=== PATIENT | male | born 1950 | race Caucasian/White ===

== ENCOUNTER 2017-12-29 11:24 | Outpatient (CLI) | payer MEDICARE ==
[~2017-12-29] VITALS: Ht 190.5 cm; Wt 88.2 kg
--- NOTE | ~2017-12-29 | HEMODYNAMI ---
PATIENT:BEENA MENDEZ MEDICAL RECORD: [id number] : 54 LOCATION:[facility] ADMISSION DATE: 12/29/17 Generatedon:12/29/201714:51 Patient name: BEENA MENDEZ Patient #: [id number] SSN: : 1950 Date of study: 12/29/2017 Page: Of Hemodynamic Procedure Report Patient Data Patient Demographics Procedure consent was obtained First Name: BEENA Gender: Male Last Name: ANDREA : 1950 [facility] Initial: LACIE Age: 67 year(s) Patient #: [id number] Race: Unknown Additional ID: [id number] Contact details Address: [facility] [address] State: [place] City: [place] Zip code: [address] Past Medical History Allergies: No known allergies Admission Admission Data Admission Date: 12/29/2017 Admission Time: 11:24 Height (in.): 75 BSA: 2.15 (m2) Height (cm.): 190.5 BMI: 23.87 (kg/m2) Weight (lbs.): 191 Weight (kg.): 86.64 Lab Results Lab Result Date: 12/29/2017 Lab Result Time: 0:00 Biochemistry Name Units Result Min Max BUN mg/dl 18 --(---*)-- 7 18 Creatinine mg/dl 0.8 --(-*--)-- 0.6 1.3 CBC Name Units Result Min Max Hemoglobin g/dl 14.2 --(*---)-- 13.5 17.5 Procedure Procedure Types Cath Procedure Diagnostic Procedure LHC LHC w/Coronaries Procedure Description Procedure Date Procedure Date: 12/29/2017 Procedure Start Time: 14:38 Procedure End Time: 14:50 Procedure Staff Name Function Dev Owens MD Performing Physician Sofie Okeefe RT Scrub Ana Jensen RN Nurse Desi Newman RN Nurse Andres Ayers RT Monitor Procedure Data Cath Procedure Fluoroscopy Diagnostic fluoroscopy Total fluoroscopy Time: 1 time: 1 min min Diagnostic fluoroscopy Total fluoroscopy dose: 339 dose: 339 mGy mGy Contrast Material Contrast Material Type Amount (ml) Isovue 300 36 Entry Location Entry Primary Successful Side Size Upsize Upsize Entry Closure Yan ccessful Closure Location (Fr) 1 (Fr) 2 (Fr) Remarks Device Remarks Radial Right 6 Fr Mechanical artery Short Compression Estimated blood loss: 10 ml Diagnostic catheters Device Type Used For End Catheter Placement DIAGNOSTIC Hillister 110cm 5 Procedure Fr catheter ([id number]) Procedure Complications No complications Procedure Medications Medication Administration Route Dosage 0.9% NaCl I.V. 100 ml/hr Oxygen etCO2 Nasal cannula 2 l/min Lidocaine 2% added to field 20 Heparin Flush Bag added to field 2 bags (1000units/500ml NS) Versed I.V. 1 mg Fentanyl I.V. 50 mcg Radial Cocktail I.A. 1 syringe (Verapomil 2mg/Nitro 400mcg/Heparin 1500units) Versed I.V. 1 mg Fentanyl I.V. 50 mcg Versed I.V. 1 mg Hemodynamics Rest BSA: 2.15 (m2) HGB: 14.2 (g/dl) O2 Consumption: Estimated: 241.3 (ml/min) O2 Con sumption indexed: Estimated:112.23 (ml/min/m) Heart Rate: 58 (bpm) Pressure Samples Time Site Value (mmHg) Purpose Heart Use Rate(bpm) 14:39 LV 124/-3,4 Snapshot 71 14:40 AO 113/21(58) Snapshot 64 14:40 AO 122/66(90) Snapshot 71 14:41 AO 106/57(77) Snapshot 63 Gradients Valve Time Site Site Mean SEP/DFP Peak To Heart Use 1 2 (mmHg) (sec/min) Peak Rate (mmHg) (bpm) Aortic 14:39 LV AO 74 Snapshots Pre Cath Intra NCS Post Cath Vital Signs Time Heart Resp SPO2 etCO2 NIBP (mmHg) Rhythm Pain Sedation Rate (ipm) (%) (mmHg) Status Level (bpm) 14:17:50 59 19 99 31.5 139/80(129) NSR 0 (11) 10(A) , No pain 14:22:35 63 18 98 35.3 147/80(128) NSR 0 (11) 10(A) , No pain 14:27:22 68 20 98 33 127/71(106) NSR 0 (11) 10(A) , No pain 14:32:04 62 19 100 37.5 131/74(110) NSR 0 (11) 10(A) , No pain 14:36:39 65 20 96 38 117/74(110) NSR 0 (11) 9(A) , No pain 14:41:19 70 18 96 33.8 116/63(96) NSR 0 (11) 9(A) , No pain 14:45:58 67 20 96 38 130/70(98) NSR 0 (11) 10(A) , No pain 14:50:43 60 11 99 33.8 116/67(101) NSR 0 (11) 10(A) , No pain Medications Time Medication Route Dose Verified Delivered Reason Notes Effectiveness by by 14:22:35 0.9% NaCl I.V. 100 Dev Desi used for ml/hr [facility] Bowen Newman procedure MD BELL 14:22:50 Oxygen etCO2 2 l/min Dev Desi used for Nasal [facility] Bowen Newman procedure cannula MD BELL 14:22:59 Lidocaine 2% added 20ml Dev Desi used for to vial GracielaBowen Newman procedure field MD BELL 14:23:18 Heparin Flush added 2 bags Dev Desi used for Bag to [facility] Bowen Newman procedure (1000units/500ml field MCGOVERN RN NS) 14:32:21 Versed I.V. 1 mg Dev Desi for sedation St Bowen Newman MD, RN 14:32:27 Fentanyl I.V. 50 mcg Dev Desi for sedation St Bowen Newman MD, RN 14:38:33 Radial Cocktail I.A. 1 Dev Méndez for (Verapomil syringe Graciela Graciela vasodilation 2mg/Nitro MD MCGOVERN 400mcg/Heparin 1500units) 14:38:48 Versed I.V. 1 mg Dev Perez for sedation St Bwoen Jensen RN, MD 14:38:57 Fentanyl I.V. 50 mcg Dev Perez for sedation St Bowen Jensen RN, MD 14:41:24 Versed I.V. 1 mg Dev Perez for sedation St Bowen Jensen RN, MD Procedure Log Time Note 14:03:59 Ana Jensen RN sent for patient. Start room use. 14:04:00 Time tracking: Regular hours (M-F 7:00 - 5:00) 14:04:04 Plan of Care:Hemodynamics will remain stable., Cardiac rhythm will remain stable., Comfort level will be maintained., Respiratory function will remain adequate., Patient/ family verbilizes understanding of procedure., Procedure tolerated without complication., Recovers from procedure without complications.. 14:06:28 Patient Height : 75 inches 14:06:30 Patient Weight : 191 lbs 14:06:37 Patient allergic to No known allergies 14:08:02 Lab Result : BUN 18 mg/dl 14:08:02 Lab Result : Hemoglobin 14.2 g/dl 14:08:02 Lab Result : Creatinine 0.8 mg/dl 14:10:16 Patient received from Pre/Post Procedure Room to CCL 1 Alert and oriented. Tansferred to table in Supine position. 14:10:24 Warm blankets applied, and winsome hugger turned on for patient comfort. 14:10:24 Correct patient and procedure confirmed by team. 14:10:26 Signed procedure consent form obtained from patient. 14:10:27 ECG and BP/O2 sat monitors applied to patient. 14:10:35 H&P Date Dictated: 12/23/2017 Within 30 days and on chart., H&P Addendum completed by physician on day of procedure. (MUST COMPLETE FOR ALL OUTPATIENTS). 14:16:53 Vital chart was started 14:22:35 0.9% NaCl 100 ml/hr I.V. was administered by Desi Newman RN; used for procedure; 14:22:50 Oxygen 2 l/min etCO2 Nasal cannula was administered by Desi Newman RN; used for procedure; 14:22:59 Lidocaine 2% 20ml vial added to field was administered by Desi Newman RN; used for procedure; 14:23:18 Heparin Flush Bag (1000units/500ml NS) 2 bags added to field was administered by Desi Newman RN; used for procedure; 14:23:24 Pre-procedure instructions explained to patient. 14:23:25 Pre-op teaching completed and patient verbalized understanding. 14:23:27 Family in waiting room. 14:23:28 Patient NPO since Midnight. 14:23:30 Is patient on blood thinner?No 14:23:32 Patient diabetic? No. 14:23:40 Previous problem with sedation/anesthesia? No ? 14:23:42 Snore? No 14:23:43 Sleep apnea? No 14:23:44 Deviated septum? No 14:23:45 Opens mouth fully? No 14:23:45 Sticks out tongue? Yes 14:23:47 Airway obstruction? No ? 14:23:50 Dentures? No ? 14:23:53 Pre procedure: right dorsailis pedis pulse 2+ Normal; easily identifiable; not easily obliterated 14:23:55 Modified Deshawn's test Ulnar < 7 seconds 14:23:56 Patient pain scale 0/10 ?. 14:24:03 IV patent on arrival in right wrist with 0.9% NaCl at KVO. 14:24:11 IV left forearm D/C'd due to infiltration. 14:24:23 IV started by Ana Jensen RN inleft hand with a 22 gauge IV catheter with 0.9% NaCl at KVO. 14:24:36 IV CATHETER 22g opened to sterile field. 14:24:41 Lab results completed and on chart. 14:24:44 Right Radial & Right Groin area was prepped with chlora-prep and draped in sterile fashion 14:24:44 Alarms reviewed by R. N. 14:24:45 Sharps counted by scrub and verified by R.N. 14:24:47 Use device set Radial Dx or PCI 14:24:48 ACIST Syringe (74468) opened to sterile field. 14:24:49 Medline Cath Pack ([id number]) opened to sterile field. 14:24:49 Bag Decanter (2002S) opened to sterile field. 14:24:51 ACIST Hand Control (50302) opened to sterile field. 14:24:51 ACIST Manifold (24034) opened to sterile field. 14:24:51 Tegaderm 4 x 4 (1626W) opened to sterile field. 14:24:52 MBrace Wrist Support ([id number]) opened to sterile field. 14:24:54 SHEATH 6Fr Prelude Radial ([id number]) opened to sterile field. 14:24:55 DIAGNOSTIC WIRE .035 260cm J wire (238586) opened to sterile field. 14:24:59 Baseline sample Acquired. 14:25:02 Rhythm: sinus rhythm 14:25:03 Full Disclosure recording started 14:25:08 Physician arrived 14:30:08 --------ALL STOP TIME OUT------ 14:30:09 Final Timeout: patient, procedure, and site verified with staff and physician. All members of the team are in agreement. 14:30:10 Right Radial & Right Groin site verified by team. 14:30:14 Physical assessment completed. ASA score P 2 - A patient with mild systemic disease as per Dev Owens MD. 14:30:17 Sedation plan: IV Moderate Sedation Medication:Versed, Fentanyl 14:32:21 Versed 1 mg I.V. was administered by Desi Newman RN; for sedation; 14:32:27 Fentanyl 50 mcg I.V. was administered by Desi Newman RN; for sedation; 14:35:39 Zero performed for pressure channel P1 14:37:49 Procedure started. 14:38:02 Local anesthetic to right radial artery with Lidocaine 2% by Dev Owens MD.INITIAL ACCESS ONLY 14:38:33 Radial Cocktail (Verapomil 2mg/Nitro 400mcg/Heparin 1500units) 1 syringe I.A. was administered by Dev Owens MD; for vasodilation; 14:38:48 Versed 1 mg I.V. was administered by Ana Jensen RN; for sedation; 14:38:57 Fentanyl 50 mcg I.V. was administered by Ana Jensen RN; for sedation; 14:39:24 A 6 Fr Short sheath was inserted into the Right Radial artery 14:39:36 A DIAGNOSTIC Hillister 110cm 5 Fr catheter (192042) was advanced over the wire and used for Procedure. 14:39:38 LV angiography performed. 14:39:39 LV gram done using REYES 14:39:55 EF : 55 % 14:40:03 LV hemodynamics recorded. 14:40:05 Injector settings: Ml/sec: 7, Volume: 15, 14:40:36 LCA angiography performed. 14:41:24 Versed 1 mg I.V. was administered by Ana Jensen RN; for sedation; 14:41:45 RCA angiography performed. 14:44:33 Catheter removed. 14:44:35 TR BAND Standard ([id number]) opened to sterile field. 14:44:49 Sheath removed intact; hemostasis achieved with Mechanical Compression to the Right Radial artery. 14:45:11 Procedure ended.(Physican Out) 14:47:54 Fluoroscopy time 01.00 minutes. 14:48:00 Fluoroscopy dose: 339 mGy 14:48:00 Flurop Dose total: 339 14:48:05 Contrast amount:Isovue 300 36ml. 14:48:06 Sharps counted by scrub and verified by R.N. 14:48:08 TR band inflated with 10cc of air. 14:48:10 Insertion/operative site no bleeding no hematoma. 14:48:11 Post Procedure Pulses reassessed and unchanged 14:48:15 Post-procedure physical assessment completed. ASA score P 2 - A patient with mild systemic disease as per Dev Owens MD. 14:48:17 Post procedure rhythm: unchanged. 14:48:28 Estimated blood loss: 10 ml 14:48:30 Post procedure instruction explained to patient.Patient verbalizes understanding. 14:48:31 Patient needs reinforcement of post procedure teaching. 14:48:37 Procedure and supply charges have been captured, reviewed, submitted and are correct. 14:48:40 Procedure Complication : No complications 14:50:19 Vital chart was stopped 14:50:19 See physician's report for complete and final results. 14:50:24 Report given to Pre/Post Procedure Room. 14:50:29 Patient transfered to Pre/Post Procedure Room with Stretcher. 14:50:31 Procedure ended. 14:50:31 Full Disclosure recording stopped 14:50:45 End room use (Document Last) Device Usage Item Name Manufacture Quantity Catalog Number Hospital Part Current M inimal Lot# / Charge Number Stock Stock Serial# Code IV CATHETER 22g B. Armendariz 1 [id number] 820765 [id number] 5 ACIST Syringe Acist 1 71145 280471 904904 078397 2 0 (52449) [employer] Inc Medline Cath Cardinal 1 [id number] 834227 90178 466251 5 Pack Health ([id number]) Bag Decanter Microtek 1 2001S 936366 82837 167669 5 () Medical Inc. ACIST Hand Acist 1 60163 564745 545490 426755 5 Control (67786) Medical Systems Inc ACIST Manifold Acist 1 31301 102749 110326 672538 5 (20164) Medical Systems Inc Tegaderm 4 x 4 3M 1 1626W 730989 958186 627962 5 (1626W) MBrace Wrist Advanced 1 140-0250-00 622109 22015 902812 5 Support Vascular ([id number]) Dynamics SHEATH 6Fr Merit 1 [id number] 480515 865213 450119 5 Prelude Radial Medical ([id number]) DIAGNOSTIC WIRE St Kash 1 416809 387415 053050 316920 3 0 .035 260cm J wire (762376) DIAGNOSTIC Terumo 1 40-4001 858365 106239 895868 5 Hillister 110cm 5 Fr catheter (530732) TR BAND Terumo 1 [id number] 193317 056729 918051 4 0 Standard ([id number]) Signature Audit [place] Stage Time Signature Unsigned Intra-Procedure 12/29/2017 Andres Ayers 2:51:25 PM RT(R) Signatures Monitor : Andres Ayers RT Signature : Date : Time : [address] [address]
--- NOTE | ~2017-12-29 | OP ---
PATIENT NAME: BEENA MENDEZ MEDICAL RECORD: [id number] :54 LOCATION:D.CAT ADMISSION DATE: SURGEON: NAIMA MARISCAL MD DATE OF OPERATION: 12/29/2017 PROCEDURES: Left heart catheterization, selective coronary angiography, right radial approach. CATHETERS: Radial sheath, [place] catheter. The procedure was well tolerated. The patient returned to the hardwick. Sheath was removed. TR band was placed. FINDINGS: Left ventriculography in 30-degree REYES view shows mild anterior hypokinesis. Overall, LV function preserved at 50%. CORONARY ANATOMY: LEFT MAIN: Left main is free of disease. LAD: Has a long diffuse 80% stenosis, fair target distally. The first diagonal has a proximal stenosis of 80%, good target distally. CIRCUMFLEX: Totally occluded, fills via left to left collaterals, appears to be a good target from ghost filling. RIGHT CORONARY ARTERY: Dominant artery, multiple stenosis of 80% throughout its course with a good target to the PDA distally. IMPRESSION: Multivessel coronary artery disease. LV function remains normal with anterior hypokinesis. We will ask CV surgery for opinion concerning cardiac bypass grafting. TRANSINT:[id number] Voice Confirmation ID: [id number] DOCUMENT ID: [id number] NAIMA MARISCAL MD at 1305 CC: [id number] DICTATION DATE: 12/29/17 1453 RAILROAD COOK: 12/29/17 1531 DEP CLI 12/29/17 [id number] [place] [address]
[2017-12-29 12:03] VITALS: BP 168/84; Ht 190.5 cm; Wt 88.2 kg
[2017-12-29 12:36] LABS: CALC OSMOLALITY 276 mosm/kg (275-300); CALCIUM 8.8 mg/dL (8.5-10.1); CARBON DIOXIDE 22.3 mmol/L (21.0-32.0); CHLORIDE - SERUM 104 mmol/L (98-107); CREATININE - SERUM 0.8 mg/dL (0.6-1.3); GLUCOSE 88 mg/dL (74-106); SODIUM 138 mmol/L (136-145); UREA NITROGEN 18 mg/dL (7-18); eGFR NON AFRICAN AMERICAN > 90 mL/min (90-120)
[2017-12-29 12:38] LABS: POTASSIUM - SERUM 4.7 mmol/L (3.5-5.1)
[2017-12-29 12:40] LABS: BASOPHILS 0.9 % (0-2); EOSINOPHILS 7.5 % (0-7); HEMATOCRIT 41.6 % (42.0-54.0); HEMOGLOBIN 14.2 g/dL (13.5-17.5); IMMATURE GRANULOCYTES 0.2 % (0-5); LYMPHOCYTES 30.1 % (15-50); MCHC 34.1 g/dL (31.0-37.0); MCV 85.1 fL (80.0-100.0); MEAN PLATELET VOLUME 10.7 fL (7.4-10.4); MONOCYTES 11.5 % (2-11); NEUTROPHILS 49.8 % (40-80); PLATELET COUNT 224 10x3/uL (130-400); RBC 4.89 10x6/uL (4.20-6.10); RDW 12.6 % (11.5-14.5); WBC 8.2 10x3/uL (4.8-10.8)
[2018-01-04] MEDS ORDERED: POTASSIUM99 M1 PO (13:54)
[2018-01-04] MEDS ORDERED: LIPITOR10 MG PO (13:54)
[2018-01-04] MEDS ORDERED: ASPIRIN EC81 M1 PO (13:55)
== END 2017-12-29 17:05 | disposition home or self-care (01) ==
LOC: D.CATH 11:24
PROVIDERS: Internal Medicine Interventional Cardiology
DX: I25.110 Atherosclerotic heart disease of native coronary artery with unstable angina pectoris (principal)

== ENCOUNTER 2018-01-04 14:30 | Inpatient (IN) | payer MEDICARE ==
[~2018-01-04] VITALS: Ht 190.5 cm; Wt 85.1 kg
--- NOTE | ~2018-01-04 | EC ---
PATIENT:BEENA MENDEZ DATE OF SERVICE: 01/06/18 SEX: M MEDICAL RECORD: [id number] DATE OF : 54 LOCATION:[place] [address] AGE OF PATIENT: 67 ADMISSION DATE: 01/06/18 REFERRING PHYSICIAN: INTERPRETING PHYSICIAN: NAIMA MARISCAL MD ECHOCARDIOGRAM REPORT ECHO CHARGES Date: 01/06/18 CLINICAL DIAGNOSIS: ECHOCARDIOGRAPHIC MEASUREMENTS (adult normal given) AC root (d.<3.7cm) cm LV Septum d (<1.2 cm> cm Valve Excursion cm LV Septum (systole) cm Left Atria (s.<4.0cm> cm LVPW d(<1.2cm) cm RV (d.<2.3cm) cm LVPW (sytole) cm LV diastole(<5.6CM) cm MV E-F(>70mm/sec) cm LV systole cm LVOT Diameter cm MV exc.(>10mm) cm Est.ejection fraction (50-75%) % DOPPLER: LVIT cm/sec A cm/sec E cm/sec LA cm/sec RVSP mmHg LVOT cm/sec AOP1/2T m/s Asc. Ao cm/sec RVOT cm/sec RA cm/sec PA cm/sec AV Gradient Peak mmHg AV Mean mmHg AV Area cm MV Gradient Peak mmHg MV Mean mmHg MV Area cm COMMENTS: Marker Delivery: Ernst JEWELLOE Rag Cutting Machine Operator: 3 Dr. Guerrero TAPE# PACS Pericardial Effusion DATE OF SERVICE: 01/06/2018 LVH appears present. LV internal dimension normal. LV globally hypokinetic, reduced EF 40%. Aortic valve appears tricuspid with good excursion. Left atrium appears normal. Mitral valve appears normal. Trace MR. Right-sided chambers are grossly normal. Trace TR. TRANSINT:[id number] Voice Confirmation ID: [id number] DOCUMENT ID: [id number] ECHOCARDIOGRAM REPORT [id number] BEENA MENDEZ NAIMA MARISCAL MD at 1023 CC: [id number] DICTATION DATE: 01/06/18 1206 MANAGER PROCESS EXCELLENCE: 01/06/18 1247 ADM IN [address] [id number] [place] [address]
--- NOTE | ~2018-01-04 | CN ---
PATIENT NAME:BEENA MENDEZ MEDICAL RECORD: [id number] : 54 LOCATION:[facility].CV04 ADMIT DATE: 01/06/18 ACCOUNT: [id number] CONSULTING PHYSICIAN: NICOL BHATTI DO REFERRING PHYSICIAN: HEMANTH NAM MD DATE OF CONSULTATION: 01/07/2018 HISTORY OF PRESENT ILLNESS: A 67-year-old male admitted for severe cardiovascular disease, admitted to Dr. Nam, vascular surgery, for bypass graft, 4-vessel. Consult for medical management, hyperlipidemia, hypertension. REVIEW OF SYSTEMS: CONSTITUTIONAL: The patient is status post bypass, postop day 1, doing well. HEENT: Denies cephalgia, visual changes, tinnitus, epistaxis, or dysphagia. CARDIOVASCULAR: Admits post-surgical discomfort, well within normal limits. PULMONARY: Denies hemoptysis. Doing well with incentive spirometry. GASTROINTESTINAL: Denies nausea, vomiting. GENITOURINARY: Denies dysuria. Toney is out. MUSCULOSKELETAL: Normal postop changes. CURRENT MEDICATIONS: Metoprolol 25 mg 1 p.o. b.i.d., Plavix 75 mg daily, aspirin 81 mg daily, Protonix 40 mg b.i.d., Senokot p.r.n. ALLERGIES: No known drug allergies. PHYSICAL EXAMINATION: VITAL SIGNS: Temperature 99, heart rate 79, respirations 16, blood pressure 144/76, O2 sat 97%. GENERAL: Alert, oriented, doing well status post CABG. HEENT: Head is normocephalic, atraumatic. Eyes: Pupils equally round and reactive. Ears: Canals patent. TMs are intact. Nose: Nares patent without drainage. Throat: No erythema, no exudates. NECK: Supple. No lymphadenopathy. No JVD. Central line in place. HEART: Regular rate and rhythm. Sternal wound appears clean, dry, and intact. LUNGS: Clear to auscultation bilaterally. Breathing is nonlabored. ABDOMEN: Soft, nontender. Bowel sounds positive. EXTREMITIES: Present times 4. NEUROLOGIC: Intact. SKIN: Warm and dry. No rash. LABORATORY DATA: CBC: White count elevated at 22,700, postop reaction. Hemoglobin 11.4, hematocrit 34.3, platelets 142. Chemistry shows sodium of 140, potassium 4.3, chloride 106, bicarbonate 24.9, BUN 20, creatinine 1.2, AST 47, ALT 25, glucose 161. ASSESSMENT AND PLAN: 1. Status post CABG. Increase activity as tolerated. 2. Hypertension. Continue metoprolol 25 mg b.i.d. 3. Hyperlipidemia. Restart statin when cleared by cardiovascular surgery. Supportive care. Appreciate this consult. TRANSINT:[id number] Voice Confirmation ID: [id number] DOCUMENT ID: [id number] CONSULT REPORT [id number] BEENA MENDEZ, NICOL SORIANO at 1030 CC: [id number] DICTATION DATE: 01/07/18 1605 LAYOUT WORKER: 01/07/18 2326 ADM IN [facility] [address] [id number]
--- NOTE | ~2018-01-04 | OP ---
PATIENT NAME: BEENA MENDEZ MEDICAL RECORD: [id number] :54 LOCATION:[facility] ADMISSION DATE:01/06/18 SURGEON: PORTILLO NAM MD DATE OF OPERATION: 01/06/2018 SURGEON: Portillo Nam MD MULTIMEDIA ARTIST: ALEXANDER Cohen OPERATION PERFORMED: 1. Coronary artery bypass graft times 4 (left internal mammary artery to LAD, reverse saphenous vein graft from aorta to first diagonal, aorta to obtuse marginal, aorta to posterior descending artery). 2. Endoscopic saphenous vein harvest, right lower extremity. PREOPERATIVE DIAGNOSES: Coronary artery disease with unstable angina. POSTOPERATIVE DIAGNOSES: Coronary artery disease with unstable angina. ANESTHESIA: General endotracheal anesthesia. ESTIMATED BLOOD LOSS: Total cardiopulmonary bypass with Cell Saver retransfusion. COMPLICATIONS: None. SPECIMENS: None. CONDITION: Stable. DISPOSITION: CV ICU. OPERATIVE FINDINGS: 1. Thin-walled greater saphenous vein with multiple varicosities from the right mid and lower thigh, one good dissection available in the upper thigh and a small section for the diagonal. Therefore, three open harvest incisions made in the left thigh, this was a thick-walled vein. 2. Good quality internal mammary artery. The LAD was a severely diseased 1.5 mm vessel. 3. First diagonal 1.5 mm vessel with severe disease. 4. Obtuse marginal 1.5 mm with severe disease. This was a poor target and would not be a good vessel for redo. 5. Posterior descending artery 1.5 mm. 6. Initial transesophageal echocardiography 40-45% ejection fraction, improved on separation from cardiopulmonary bypass to 50-55%. 7. Bradycardia initially and required atrial pacing off cardiopulmonary bypass. OPERATIVE INDICATION: Coronary artery disease. OPERATIVE SUMMARY IN DETAIL: The patient was brought to the operating suite. General anesthesia was obtained. The patient was prepped and draped. Greater saphenous vein was harvested from the patient's right leg with endoscopic technique and with open technique of the left leg, side branches were divided. The vessel was ligated proximal and distally, removed. Side branches were clipped or tied or sutured as needed. Leg was later irrigated and closed in 2 OPERATIVE REPORT [id number] BEENA MENDEZ layers. A medial sternotomy incision was made. Subcutaneous tissue divided with electrocautery. Sternum was divided with a saw. The left hemisternum was elevated. Left pleural cavity was entered. Left internal mammary vein was taken out of the pedicle graft. Sternal retractor was placed. Pericardium was opened. Heparin was given. Aorta was cannulated. Dual stage venous cannula was inserted. The internal mammary was clipped distally and made ready for anastomosis. The patient was placed on cardiopulmonary bypass. Sites for distal anastomoses were selected. Cardioplegic needle was inserted in the anterior ascending aorta. The patient's temperature was allowed to drift. Crossclamp was placed. Cardioplegia was given antegrade and this was repeated at 15-minute intervals including down the completed vein graft. Distal anastomoses were performed in standard technique. Proximal anastomosis with single cross-clamp technique. Aortic root was de-aired by opening the crossclamp, tying the proximal anastomosis, de-airing the vein graft restoring distal flow proximal and distal anastomotic to inspect for bleeding. Single sutures in the proximal anastomotic sites and sutures in thin walled portion of the right and diagonal vein grafts. With the patient in a sinus bradycardia rhythm, atrial and ventricular pacing wires were placed. The patient was paced atrially, fully rewarmed, weaned from cardiopulmonary bypass and was stable. The patient was decannulated. Aortic annulus that was oversewn. Protamine was given. Thorough irrigation was undertaken. All graft lay appropriately. Hemostasis was ensured. A drain was placed in the mediastinum as well as the left pleural cavity. Pericardial fat was loosely reapproximated. Left chest was evacuated and irrigated. The internal mammary harvest site was ensured to be hemostatic. Sternal closed with wires. Fascia was closed. Subcutaneous tissue was closed. Skin was closed. Dermabond was placed. The needle and sponge counts reported correct. The patient was taken to ICU in stable condition. TRANSINT:[id number] Voice Confirmation ID: [id number] DOCUMENT ID: [id number] PORTILLO NAM MD at 0931 CC: RAVEN GODOY M.D. [id number] DICTATION DATE: 01/06/18 1520 CRITICAL SYSTEMS TECHNICIAN: 01/06/18 1707 ADM IN [facility] [address] [place] [address]
--- NOTE | ~2018-01-04 | MORECARE ---
CASE MANAGEMENT DISCHARGE SUMMARY PATIENT: BEENA MENDEZ UNIT: [id number] ADM DATE: 01/06/18 AGE: 67 : [birth year] SEX: M ROOM/BED: D.[facility] AUTHOR: GEOVANI,DOC PHYSICIAN: REFERRING PHYSICIAN: HEMANTH NAM MD DATE OF SERVICE: 01/16/18 Discharge Plan Patient Name: BEENA MENDEZ [facility] [facility] 1950 Planned Disposition: Home Anticipated Discharge Date: Discharge Date: 01/14/2018 Expected LOS: Initial Reviewer: [email or web address] Initial Review Date: 01/11/2018 Generated: 01/16/18 10:05 am Comments DCP- Discharge Planning Updated by [email or web address]: Paola Tello on 01/11/18 3:[address] Patient Name: BEENA MENDEZ Admission Status: Elective Accout number: [id number] Admission Date: 01-06-2018 : 1950 Admission Diagnosis:ATHSCL HEART DISEASE OF [place] COR ART W UNSP ANG PCTRS Attending: HEMANTH NAM Current LOS: 5 Anticipated DC Date: Planned Disposition: Home Primary Insurance: [employer] PPO [employer] Discharge Planning Comments: CM met with patient at bedside after obtaining verbal consent. Patient states he plans on returning home after discharge with his . Patient states he will have family transport him home via private vehicle. Patient denies any discharge needs at this time. CM will continue to follow and assist as needed for discharge planning / needs. Retail Wireless Sales Consultant: Paola Tello DCPIA - Discharge Planning Initial Assessment Updated by [email or web address]: Paola Tello on 01/11/18 4:44 pm * Is the patient Alert and Oriented? Yes * How many steps to enter\exit or inside your home? * PCP Dr. Ferraro * Pharmacy [facility] * Preadmission Environment Home with Family * ADLs Independent * Equipment None * List name and contact numbers for known caregivers / representatives who currently or will assist patient after discharge: Fabiola Mendez -[phone] * Verbal permission to speak to the caregivers and representatives has been obtained from the patient. N/A * Community resources currently utilized None * Additional services required to return to the preadmission environment? No * Can the patient safely return to the preadmission environment? Yes * Has this patient been hospitalized within the prior 30 days at any hospital? No Last DP export: 01/11/18 3:47 Patient Name: BEENA MENDEZ Page [id number] at 0906 All edits/amendments must be made on the electronic document DICTATION DATE: 01/16/18904 DIFFUSION FURNACE OPERATOR: ISABELA 01/16/18904 RPT#: [id number] DC DATE:01/14/18 STATUS: DIS IN [facility] [address] [place] [address] END OF REPORT
[~2018-01-04 14:30] MED LIST: ASPIRIN EC81 M1 PO; LIPITOR10 MG PO; POTASSIUM99 M1 PO
[2018-01-04 15:20] LABS: BASOPHILS 0.6 % (0-2); EOSINOPHILS 4.8 % (0-7); HEMATOCRIT 42.6 % (42.0-54.0); HEMOGLOBIN 14.5 g/dL (13.5-17.5); IMMATURE GRANULOCYTES 0.3 % (0-5); LYMPHOCYTES 25.2 % (15-50); MCH 29.2 pg (26.0-34.0); MCV 85.7 fL (80.0-100.0); MEAN PLATELET VOLUME 10.3 fL (7.4-10.4); MONOCYTES 10.6 % (2-11); NEUTROPHILS 58.5 % (40-80); PLATELET COUNT 236 10x3/uL (130-400); RBC 4.97 10x6/uL (4.20-6.10); RDW 12.6 % (11.5-14.5); WBC 9.9 10x3/uL (4.8-10.8)
[2018-01-04 15:26] LABS: APPEARANCE CLEAR (CLEAR); APTT 32.9 SECONDS (22.8-39.4); BILIRUBIN NEGATIVE (NEGATIVE); COLOR YELLOW (YELLOW); GLUCOSE NEGATIVE (NEGATIVE); INR 1.01 (0.85-1.17); KETONE NEGATIVE (NEGATIVE); NITRITE NEGATIVE (NEGATIVE); PROTEIN NEGATIVE (NEGATIVE); PROTIME 12.9 SECONDS (11.6-15.0); UROBILINOGEN NORMAL (NORMAL)
[2018-01-04 15:46] LABS: ALBUMIN 3.8 g/dL (3.4-5.0); ANION GAP 8.4 mmol/L (8-16); BILIRUBIN - TOTAL 0.25 mg/dL (0.2-1.3); CALCIUM 9.2 mg/dL (8.5-10.1); CARBON DIOXIDE 32.5 mmol/L (21.0-32.0); CREATININE - SERUM 1.2 mg/dL (0.6-1.3); PHOSPHOROUS 3.6 mg/dL (2.5-4.9); POTASSIUM - SERUM 3.9 mmol/L (3.5-5.1); T4 THYROXIN - FREE 0.83 ng/dL (0.76-1.46); THYROID STIMULATING HORMONE 1.86 uIU/mL (0.36-3.74); URIC ACID 5.2 mg/dL (2.6-7.2)
[2018-01-06] VITALS (38 sets, daily range): BP systolic 117–153; BP diastolic 46–82; BMI 24.2
[2018-01-07] VITALS (46 sets, daily range): BP systolic 114–144; BP diastolic 46–85; Ht 190.5 cm; Wt 85.1 kg
[2018-01-07 06:15] LABS: HEMATOCRIT 34.3 % (42.0-54.0); HEMOGLOBIN 11.4 g/dL (13.5-17.5); MCH 28.6 pg (26.0-34.0); MCHC 33.2 g/dL (31.0-37.0); MEAN PLATELET VOLUME 10.3 fL (7.4-10.4); RBC 3.99 10x6/uL (4.20-6.10); RDW 12.8 % (11.5-14.5); WBC 22.7 10x3/uL (4.8-10.8)
[2018-01-07 06:58] LABS: ALBUMIN 2.8 g/dL (3.4-5.0); ANION GAP 13.4 mmol/L (8-16); BILIRUBIN - TOTAL 0.53 mg/dL (0.2-1.3); CALCIUM 7.6 mg/dL (8.5-10.1); CARBON DIOXIDE 24.9 mmol/L (21.0-32.0); CREATININE - SERUM 1.2 mg/dL (0.6-1.3); POTASSIUM - SERUM 4.3 mmol/L (3.5-5.1); PROTEIN - SERUM 5.7 g/dL (6.4-8.2)
[2018-01-08] VITALS (20 sets, daily range): BP systolic 95–146; BP diastolic 59–79
[2018-01-08 06:18] LABS: HEMATOCRIT 32.7 % (42.0-54.0); HEMOGLOBIN 10.8 g/dL (13.5-17.5); MCH 28.8 pg (26.0-34.0); MCV 87.2 fL (80.0-100.0); MEAN PLATELET VOLUME 10.6 fL (7.4-10.4); RBC 3.75 10x6/uL (4.20-6.10); RDW 12.9 % (11.5-14.5); WBC 19.3 10x3/uL (4.8-10.8)
[2018-01-08 07:01] LABS: ALBUMIN 2.8 g/dL (3.4-5.0); ALKALINE PHOSPHATASE 52 U/L (46-116); ALT (SGPT) 27 U/L (10-68); BILIRUBIN - TOTAL 0.55 mg/dL (0.2-1.3); CALC OSMOLALITY 267 mosm/kg (275-300); CALCIUM 8.1 mg/dL (8.5-10.1); CARBON DIOXIDE 27.6 mmol/L (21.0-32.0); CHLORIDE - SERUM 99 mmol/L (98-107); CREATININE - SERUM 0.9 mg/dL (0.6-1.3); GLUCOSE 118 mg/dL (74-106); PROTEIN - SERUM 6.3 g/dL (6.4-8.2); SODIUM 132 mmol/L (136-145); UREA NITROGEN 17 mg/dL (7-18); eGFR NON AFRICAN AMERICAN 90 mL/min (90-120)
[2018-01-09] VITALS (27 sets, daily range): BP systolic 98–149; BP diastolic 58–94
[2018-01-09 06:21] LABS: MCH 28.6 pg (26.0-34.0); MCHC 33.3 g/dL (31.0-37.0); MCV 85.7 fL (80.0-100.0); MEAN PLATELET VOLUME 10.7 fL (7.4-10.4); RBC 3.5 10x6/uL (4.20-6.10); RDW 12.6 % (11.5-14.5)
[2018-01-09 06:40] LABS: ALBUMIN 2.5 g/dL (3.4-5.0); ALKALINE PHOSPHATASE 52 U/L (46-116); ALT (SGPT) 29 U/L (10-68); BILIRUBIN - TOTAL 0.49 mg/dL (0.2-1.3); CALC OSMOLALITY 273 mosm/kg (275-300); CALCIUM 8.1 mg/dL (8.5-10.1); CARBON DIOXIDE 27.9 mmol/L (21.0-32.0); CHLORIDE - SERUM 99 mmol/L (98-107); CREATININE - SERUM 0.9 mg/dL (0.6-1.3); GLUCOSE 120 mg/dL (74-106); POTASSIUM - SERUM 3.9 mmol/L (3.5-5.1); PROTEIN - SERUM 6.3 g/dL (6.4-8.2); SODIUM 135 mmol/L (136-145); UREA NITROGEN 20 mg/dL (7-18); eGFR NON AFRICAN AMERICAN 90 mL/min (90-120)
[2018-01-10] VITALS (28 sets, daily range): BP systolic 97–132; BP diastolic 51–83
[2018-01-10 06:40] LABS: HEMOGLOBIN 11.1 g/dL (13.5-17.5); MCH 28.6 pg (26.0-34.0); MCHC 33.6 g/dL (31.0-37.0); MCV 85.1 fL (80.0-100.0); MEAN PLATELET VOLUME 10.4 fL (7.4-10.4); RBC 3.88 10x6/uL (4.20-6.10); RDW 12.6 % (11.5-14.5); WBC 13.8 10x3/uL (4.8-10.8)
[2018-01-10 07:00] LABS: ALBUMIN 2.6 g/dL (3.4-5.0); ALKALINE PHOSPHATASE 60 U/L (46-116); ALT (SGPT) 30 U/L (10-68); BILIRUBIN - TOTAL 0.58 mg/dL (0.2-1.3); CALC OSMOLALITY 270 mosm/kg (275-300); CALCIUM 8.3 mg/dL (8.5-10.1); CARBON DIOXIDE 26.9 mmol/L (21.0-32.0); CHLORIDE - SERUM 98 mmol/L (98-107); GLUCOSE 127 mg/dL (74-106); POTASSIUM - SERUM 3.7 mmol/L (3.5-5.1); PROTEIN - SERUM 6.7 g/dL (6.4-8.2); SODIUM 133 mmol/L (136-145); UREA NITROGEN 22 mg/dL (7-18); eGFR NON AFRICAN AMERICAN 80 mL/min (90-120)
[2018-01-11] VITALS (30 sets, daily range): BP systolic 93–136; BP diastolic 55–92
[2018-01-11 06:25] LABS: BASOPHILS 0.1 % (0-2); EOSINOPHILS 0.3 % (0-7); HEMATOCRIT 34.2 % (42.0-54.0); HEMOGLOBIN 11.6 g/dL (13.5-17.5); IMMATURE GRANULOCYTES 0.5 % (0-5); LYMPHOCYTES 11.4 % (15-50); MCH 28.5 pg (26.0-34.0); MCHC 33.9 g/dL (31.0-37.0); MEAN PLATELET VOLUME 9.7 fL (7.4-10.4); MONOCYTES 12.7 % (2-11); PLATELET COUNT 321 10x3/uL (130-400); RBC 4.07 10x6/uL (4.20-6.10); RDW 12.6 % (11.5-14.5); WBC 12.2 10x3/uL (4.8-10.8)
[2018-01-11 06:46] LABS: ALBUMIN 2.5 g/dL (3.4-5.0); ALKALINE PHOSPHATASE 58 U/L (46-116); ALT (SGPT) 25 U/L (10-68); BILIRUBIN - TOTAL 0.56 mg/dL (0.2-1.3); CALC OSMOLALITY 275 mosm/kg (275-300); CALCIUM 8.2 mg/dL (8.5-10.1); CARBON DIOXIDE 26.8 mmol/L (21.0-32.0); CHLORIDE - SERUM 99 mmol/L (98-107); CREATININE - SERUM 0.9 mg/dL (0.6-1.3); GLUCOSE 116 mg/dL (74-106); POTASSIUM - SERUM 3.2 mmol/L (3.5-5.1); PROTEIN - SERUM 6.5 g/dL (6.4-8.2); SODIUM 136 mmol/L (136-145); UREA NITROGEN 21 mg/dL (7-18); eGFR NON AFRICAN AMERICAN 90 mL/min (90-120)
[2018-01-12] VITALS (21 sets, daily range): BP systolic 107–146; BP diastolic 53–92
[2018-01-12 06:17] LABS: CALC OSMOLALITY 279 mosm/kg (275-300); CALCIUM 7.9 mg/dL (8.5-10.1); CARBON DIOXIDE 26.6 mmol/L (21.0-32.0); CHLORIDE - SERUM 102 mmol/L (98-107); CREATININE - SERUM 0.9 mg/dL (0.6-1.3); GLUCOSE 104 mg/dL (74-106); MAGNESIUM - SERUM 1.9 mg/dL (1.8-2.4); PHOSPHOROUS 3.1 mg/dL (2.5-4.9); POTASSIUM - SERUM 3.6 mmol/L (3.5-5.1); SODIUM 138 mmol/L (136-145); UREA NITROGEN 25 mg/dL (7-18); eGFR NON AFRICAN AMERICAN 90 mL/min (90-120)
[2018-01-13] VITALS (17 sets, daily range): BP systolic 101–141; BP diastolic 48–77
[2018-01-13 10:15] LABS: HEMATOCRIT 27.8 % (42.0-54.0); HEMOGLOBIN 9.2 g/dL (13.5-17.5); MCH 28.2 pg (26.0-34.0); MCHC 33.1 g/dL (31.0-37.0); MCV 85.3 fL (80.0-100.0); MEAN PLATELET VOLUME 9.5 fL (7.4-10.4); RBC 3.26 10x6/uL (4.20-6.10); RDW 12.9 % (11.5-14.5); WBC 12.3 10x3/uL (4.8-10.8)
[2018-01-13 11:10] LABS: ALBUMIN 2.8 g/dL (3.4-5.0); ANION GAP 10.9 mmol/L (8-16); BILIRUBIN - TOTAL 0.51 mg/dL (0.2-1.3); CALCIUM 8.3 mg/dL (8.5-10.1); CARBON DIOXIDE 27.7 mmol/L (21.0-32.0); CREATININE - SERUM 1.1 mg/dL (0.6-1.3); POTASSIUM - SERUM 3.6 mmol/L (3.5-5.1); PROTEIN - SERUM 6.7 g/dL (6.4-8.2)
[2018-01-14] VITALS (10 sets, daily range): BP systolic 104–142; BP diastolic 54–67
[2018-01-14 06:42] LABS: HEMATOCRIT 29.5 % (42.0-54.0); HEMOGLOBIN 9.8 g/dL (13.5-17.5); MCH 28.3 pg (26.0-34.0); MCHC 33.2 g/dL (31.0-37.0); MCV 85.3 fL (80.0-100.0); RBC 3.46 10x6/uL (4.20-6.10); RDW 12.9 % (11.5-14.5); WBC 10.4 10x3/uL (4.8-10.8)
[2018-01-14 07:24] LABS: ALBUMIN 2.5 g/dL (3.4-5.0); ALKALINE PHOSPHATASE 56 U/L (46-116); ALT (SGPT) 23 U/L (10-68); BILIRUBIN - TOTAL 0.68 mg/dL (0.2-1.3); CALC OSMOLALITY 280 mosm/kg (275-300); CALCIUM 8.2 mg/dL (8.5-10.1); CARBON DIOXIDE 25.8 mmol/L (21.0-32.0); CHLORIDE - SERUM 103 mmol/L (98-107); GLUCOSE 99 mg/dL (74-106); POTASSIUM - SERUM 3.3 mmol/L (3.5-5.1); PROTEIN - SERUM 5.8 g/dL (6.4-8.2); SODIUM 139 mmol/L (136-145); UREA NITROGEN 22 mg/dL (7-18); eGFR NON AFRICAN AMERICAN 80 mL/min (90-120)
[2018-01-14] MEDS ORDERED: CORDARONE PO (10:38)
[2018-01-14] MEDS ORDERED: PLAVIX75 MG PO (10:38)
[2018-01-14] MEDS ORDERED: LOPRESSOR25 MG PO (10:39)
[2018-01-14] MEDS ORDERED: CARDIZEM CD120 MG PO (10:39)
[2018-01-14] MEDS ORDERED: PERCOCET 5-3251 TAB PO (10:40)
[2018-01-14] MEDS ORDERED: K-DUR20 MEQ PO (10:40)
[2018-01-14] MEDS ORDERED: PROTONIX40 MG PO (10:41)
== END 2018-01-14 11:51 | disposition home or self-care (01) | DRG 236 ==
LOC: D.SDCHOLD 01-06 05:00 → D.CVICU 01-06 05:00 → D.SDCHOLD 01-06 07:30 → D.CVICU 01-06 11:13 → D.SDCHOLD 01-06 15:00 → D.CVICU 01-14 11:51
PROVIDERS: Family Medicine; Internal Medicine Cardiovascular Disease; Internal Medicine Gastroenterology; Thoracic Surgery (Cardiothoracic Vascular Surgery)
PROC: 021209W Bypass Coronary Artery, Three Arteries from Aorta with Autologous Venous Tissue, Open Approach (ICD-10-PCS; 2018-01-06)
PROC: 06BP4ZZ Excision of Right Saphenous Vein, Percutaneous Endoscopic Approach (ICD-10-PCS; 2018-01-06)
PROC: 5A1221Z Performance of Cardiac Output, Continuous (ICD-10-PCS; 2018-01-06)
PROC: 02100Z9 Bypass Coronary Artery, One Artery from Left Internal Mammary, Open Approach (ICD-10-PCS; principal; 2018-01-06 07:30)
DX: I25.119 Atherosclerotic heart disease of native coronary artery with unspecified angina pectoris (principal); K56.0 Paralytic ileus; I48.92 Unspecified atrial flutter; I48.1 Persistent atrial fibrillation; I10 Essential (primary) hypertension; E78.5 Hyperlipidemia, unspecified; I48.0 Paroxysmal atrial fibrillation

== ENCOUNTER → 2018-02-08 09:39 | Outpatient (CLI) | payer MEDICARE ==
[2018-01-07 09:56] VITALS: BMI 25.0
[~2018-02-08 09:39] MED LIST changes: +CARDIZEM CD120 MG PO; +CORDARONE PO; +K-DUR20 MEQ PO; +LOPRESSOR25 MG PO; +PERCOCET 5-3251 TAB PO; +PLAVIX75 MG PO; +PROTONIX40 MG PO
[2018-02-08 10:39] LABS: HEMATOCRIT 37.7 % (42.0-54.0); HEMOGLOBIN 12.2 g/dL (13.5-17.5); MCH 27.9 pg (26.0-34.0); MCHC 32.4 g/dL (31.0-37.0); MCV 86.3 fL (80.0-100.0); MEAN PLATELET VOLUME 10.2 fL (7.4-10.4); RBC 4.37 10x6/uL (4.20-6.10)
[2018-02-08 10:51] LABS: ALBUMIN 3.3 g/dL (3.4-5.0); BILIRUBIN - TOTAL 0.25 mg/dL (0.2-1.3); CREATININE - SERUM 1.3 mg/dL (0.6-1.3); PROTEIN - SERUM 7.7 g/dL (6.4-8.2)
== END | disposition home or self-care (01) ==
LOC: D.RAD 09:39
PROVIDERS: Thoracic Surgery (Cardiothoracic Vascular Surgery)
DX: I25.10 Atherosclerotic heart disease of native coronary artery without angina pectoris (principal); D64.9 Anemia, unspecified; J90 Pleural effusion, not elsewhere classified

== ENCOUNTER → 2019-04-02 08:13 | Outpatient (CLI) | payer MEDICARE ==
[2018-01-07 09:56] VITALS: BMI 25.0
--- NOTE | 2019-04-04 10:02 | EC ---
PATIENT:BEENA MENDEZ DATE OF SERVICE: 04/02/19 SEX: M MEDICAL RECORD: [id number] DATE OF : 54 LOCATION:[facility] AGE OF PATIENT: 68 ADMISSION DATE: 04/02/19 REFERRING PHYSICIAN: INTERPRETING PHYSICIAN: NAIMA MARISCAL MD ECHOCARDIOGRAM REPORT ECHO CHARGES 4 ECHO COMPLETE Date: 04/02/19 CLINICAL DIAGNOSIS: HTN/MITRAL REGURG HX CAD/AFIB/MR ECHOCARDIOGRAPHIC MEASUREMENTS (adult normal given) AC root (d.<3.7cm) 2.8 cm LV Septum d (<1.2 cm> 1.3 cm Valve Excursion 1.7 cm LV Septum (systole) 1.6 cm Left Atria (s.<4.0cm> 3.8 cm LVPW d(<1.2cm) 1.4 cm RV (d.<2.3cm) 4.1 cm LVPW (sytole) 1.7 cm LV diastole(<5.6CM) 4.8 cm MV E-F(>70mm/sec) cm LV systole 2.4 cm LVOT Diameter 1.9 cm MV exc.(>10mm) 1.2 cm Est.ejection fraction (50-75%) % DOPPLER: LVIT cm/sec A 91.0 cm/sec E 97.0 cm/sec LA cm/sec RVSP 33 mmHg LVOT 129 cm/sec AOP1/2T m/s Asc. Ao 171 cm/sec RVOT 91 cm/sec RA cm/sec PA 137 cm/sec AV Gradient Peak 11.67mmHg AV Mean 6.09 mmHg AV Area 2.3 cm MV Gradient Peak 4.07 mmHg MV Mean 1.65 mmHg MV Area cm COMMENTS: Intern Brand: 2 JILL PA Mental Health Program Manager: 3 Dr. Guerrero TAPE# PACS Pericardial Effusion N DATE OF SERVICE: Adequate 2D, color flow, spectral Doppler, and M-Mode LVH is present. LV internal dimensions are normal. Wall motion is normal. EF is greater than or equal to 55%. Aortic valve is sclerotic. No evidence of stenosis by Doppler interrogation. Left atrium is normal pulses. Mitral valve shows no prolapse. Mild plus MR. Right-sided chambers grossly normal. Mild TR. ECHOCARDIOGRAM REPORT [id number] BEENA MENDEZ TRANSINT:[id number] Voice Confirmation ID: [id number] DOCUMENT ID: [id number] NAIMA MARISCAL MD at 1002 CC: [id number] DICTATION DATE: 04/02/19 1300 SERVICE DESK TEAM LEAD: 04/02/19 1819 DEP CLI 04/02/19 [place] [id number] [place] [id number]
== END | disposition home or self-care (01) ==
LOC: D.HCCECHO 08:13
PROVIDERS: ATTEND Internal Medicine Interventional Cardiology
DX: I10 Essential (primary) hypertension (principal)

== ENCOUNTER → 2020-08-05 11:12 | Outpatient (CLI) | payer OTHER ==
[2018-01-07 09:56] VITALS: BMI 25.0
--- NOTE | 2020-08-06 13:38 | EC ---
PATIENT:BEENA MENDEZ DATE OF SERVICE: 08/05/20 SEX: M MEDICAL RECORD: [id number] DATE OF : [birth year] [facility] AGE OF PATIENT: 70 ADMISSION DATE: 08/05/20 REFERRING PHYSICIAN: INTERPRETING PHYSICIAN: NAIMA MARISCAL MD ECHOCARDIOGRAM REPORT ECHO CHARGES 4 ECHO COMPLETE Date: 08/05/20 CLINICAL DIAGNOSIS: HEART MURMUR ECHOCARDIOGRAPHIC MEASUREMENTS (adult normal given) AC root (d.<3.7cm) 3.3 cm LV Septum d (<1.2 cm> 1.4 cm Valve Excursion 1.1 cm LV Septum (systole) 1.6 cm Left Atria (s.<4.0cm> 3.8 cm LVPW d(<1.2cm) 1.3 cm RV (d.<2.3cm) 4.5 cm LVPW (sytole) 1.6 cm LV diastole(<5.6CM) 5.4 cm MV E-F(>70mm/sec) cm LV systole 3.4 cm LVOT Diameter 1.7 cm MV exc.(>10mm) 1.6 cm Est.ejection fraction (50-75%) % DOPPLER: LVIT cm/sec A 73.0 cm/sec E 89.0 cm/sec LA cm/sec RVSP 34 mmHg LVOT 120 cm/sec AOP1/2T m/s Asc. Ao 159 cm/sec RVOT 69 cm/sec RA cm/sec PA 129 cm/sec AV Gradient Peak 10.15mmHg AV Mean 4.91 mmHg AV Area 1.9 cm MV Gradient Peak 3.17 mmHg MV Mean 1.43 mmHg MV Area cm COMMENTS: KODI TRACED AT 2.1 CM2 Refueling Ramp Supervisor: 2 JILL PA Mud Analysis Well Logging Operator: 3 Dr. Guerrero TAPE# PACS Pericardial Effusion N DATE OF SERVICE: Adequate 2D, color-flow imaging, spectral Doppler, and M-Mode. FINDINGS: Mild LVH. LV internal dimensions are normal. Wall motion is normal. EF is greater than or equal to 55%. Aortic valve is sclerotic. No evidence of stenosis by Doppler interrogation. Left atrium normal at 3.8 cm. Mitral valve shows no prolapse. Mild MR. Right-sided chamber is grossly normal. Trace TR. TRANSINT:[id number] Voice Confirmation ID: [id number] DOCUMENT ID: [id number] ECHOCARDIOGRAM REPORT [id number] BEENA MENDEZ,NAIMA Obrien MD at 1338 CC: [id number] DICTATION DATE: 08/05/20 160 CAFE OPERATOR: 08/05/202112 DEP CLI 08/05/20 [place] [id number] [place] [id number]
== END | disposition home or self-care (01) ==
LOC: D.HCCECHO 11:12
PROVIDERS: ATTEND Internal Medicine Interventional Cardiology
DX: R01.1 Cardiac murmur, unspecified (principal)